=== PATIENT | male | born 1950 | race Caucasian/White ===

== ENCOUNTER 2024-08-23 19:03 | Inpatient (IN) | payer OTHER ==
[~2024-08-23] VITALS: Ht 185.4 cm; Wt 97.4 kg
[2024-08-23] VITALS (8 sets, daily range): BP systolic 112–153; BP diastolic 57–70
[~2024-08-23 19:03] MED LIST: Ketamine HCl 100 MG / ML 5ML Vial IV ONE; Rocuronium Bromide 10 MG/ML 5ML Injection IV ONE
[2024-08-23 19:37] LABS: BASOPHILS ABSOLUTE AUTO 0.05 K/mm3 (0.00-0.23); BASOPHILS PERCENT AUTO 0 % (0-2); EOSINOPHILS PERCENT AUTO 1 % (0-6); Hematocrit 44.8 % (37.0-53.0); Hemoglobin 14.2 g/dL (13.5-17.5); IMMATURE GRAN ABSOLUTE AUTO 0.28 K/mm3 (0.00-0.10); IMMATURE GRAN PERCENT AUTO 2 % (0-1); LYMPHOCYTES PERCENT AUTO 31 % (21-46); MONOCYTES ABSOLUTE AUTO 0.78 K/mm3 (0.16-1.47); MONOCYTES PERCENT AUTO 5 % (4-13); Mean Corpuscular HGB 29.9 pg (26.0-34.0); Mean Corpuscular HGB Conc 31.7 g/dL (31.5-36.5); Mean Corpuscular Volume 94 fL (80-100); Mean Platelet Volume 10.5 fL (9.1-12.4); NEUTROPHILS ABSOLUTE AUTO 9.22 K/mm3 (1.96-9.15); NEUTROPHILS PERCENT AUTO 61 % (41-73); Platelet Count 233 K/mm3 (150-400); RDW Coefficient Variation 12.8 % (11.7-14.2); RDW Standard Deviation 45.1 fL (35.1-46.3); Red Blood Cell Count 4.75 M/mm3 (4.30-5.90); White Blood Cell Count 15.13 K/mm3 (4.00-11.30)
[2024-08-23] MEDS ORDERED: FentaNYL Citrate 50 MCG/ML 2 ML Injection IV ONE (19:55)
[2024-08-23] MEDS ORDERED: propofoL 100 ML IV SCH (19:55)
[2024-08-23 19:56] LABS: Albumin, Blood 3.5 g/dL (3.4-5.0); Albumin/Globulin Ratio 1.2 (0.8-1.8); Bilirubin, Total 0.4 mg/dL (0.1-1.0); Bun/Creatinine Ratio 20.2 (12.0-20.0); Calcium, Blood 8.6 mg/dL (8.5-10.1); Creatinine, Blood 0.79 mg/dL (0.60-1.20); Globulin, Blood 2.8 g/dL (2.2-4.0); Potassium, Blood 3.8 mmol/L (3.5-5.5); Total Protein, Blood 6.3 g/dL (6.4-8.2)
[2024-08-23] MEDS ORDERED: Piperacillin/Tazobactam Sod 3.375 GM in NS 100 ML IV ONE (20:05)
[2024-08-23] MEDS ORDERED: NS 1,000 ML IV SCH (20:25)
[2024-08-23 20:33] LABS: Source, Urine Foley catheter
[2024-08-23] MEDS ORDERED: Ondansetron HCl 2 MG / ML 2ML Vial IV PRN (20:35)
[2024-08-23] MEDS ORDERED: FLU VACC TS2024-25(6MOS UP)/PF 45 MCG/0.5 ML SYRINGE IM SCH (20:35)
[2024-08-23 20:36] LABS: Appearance, Urine Hazy (Clear); Bilirubin, Urine Neg (Neg); Blood, Urine 4+ (Neg); Color, Urine Yellow (P-Yellow); Glucose Qualitative, Urine 2+ (Neg); Ketones, Urine Neg (Neg); Leukocyte Esterase, Urine Neg (Neg); Nitrite, Urine Neg (Neg); Protein, Urine 3+ (Neg); Specific Gravity, Urine 1.015 (1.003-1.022); Urobilinogen, Urine NORM (Normal)
[2024-08-23 20:50] LABS: Bacteria Many /hpf; Squamous Epithelial Cells Rare /hpf (Few)
[2024-08-23] MEDS ORDERED: Sodium Bicarb 8.4% 1 MEQ/ML 50 ML Vial IV ONE (21:00)
[2024-08-23] MEDS ORDERED: Enoxaparin 40 MG/0.4 ML SYR SC SCH (21:00)
[2024-08-23] MEDS ORDERED: Rocuronium Bromide 10 MG/ML 5ML Injection IV ONE (21:10)
[2024-08-23] MEDS ORDERED: Ketamine HCl 100 MG / ML 5ML Vial IV ONE (21:10)
[2024-08-23] MEDS ORDERED: Ipratropium/Albuterol SulF 2.5-0.5MG/3 ML Amp INH PRN (21:25)
[2024-08-23] MEDS ORDERED: Sodium Bicarb 8.4% Inj 100 MEQ in Sodium Chloride 0.45% 1,000 ML IV ONE (21:30)
[2024-08-23] MEDS ORDERED: Potassium Chl 20MEQ/Water100ML 100 ML IV SCH (21:30)
[2024-08-23] MEDS ORDERED: ALBU90OI INH (22:38)
[2024-08-23] MEDS ORDERED: Ventolin5 MG/1 ML INH (22:39)
[2024-08-23] MEDS ORDERED: Deltasone 10 mg10 MG PO (22:39)
[2024-08-23] MEDS ORDERED: VITAMIN B-1100 M1 PO (22:40)
[2024-08-23] MEDS ORDERED: TAMS.4ER PO (22:40)
[2024-08-23] MEDS ORDERED: ATOR20 PO (22:41)
[2024-08-23] MEDS ORDERED: LACT PO (22:42)
[2024-08-23] MEDS ORDERED: FURO40 PO (22:42)
[2024-08-23] MEDS ORDERED: Vitamin D1000 UNI1 PO (22:42)
[2024-08-23] MEDS ORDERED: PHOSPHO-TRIN K500 MG PO (22:44)
[2024-08-23] MEDS ORDERED: CENTRUM SILVER1 EAC2 PO (22:54)
[2024-08-23] MEDS ORDERED: Aspir 8181 MG PO (22:55)
--- NOTE | 2024-08-23 23:00 | NUR ---
PT ADMITTED TO ROOM ICU 13 FROM ED ARRIVING TO ROOM AT 2200. PT INTUBATED AND POST CODE. SLIDE TRANSFERRED TO BED FROM [facility]. PT ON INITIATED ON PROPOFOL AND HAS BEEN TITRATED UPWARDS TO 30 MCG'S/KG/MIN. PT REMAINS SOMEWHAT AGITATED. HAVE SUCTIONED WHITE/CREAM COLORED SECRETIONS. CALL MADE TO PT'S , BLAYNE WITH UPDATE. SHE STATES THAT SHE IS UNABLE TO COME IN AT THIS TIME SECONDARY TO THE FACT THAT SHE HAS A BROKEN ANKLE, AND THAT SHE WOULD COME UP IN IN THE MORNING WITH FAMILY. WILL REVIEW CHART AND PLAN OF CARE FOR THIS PT.
[2024-08-23 23:08] LABS: Base Excess Venous -8.6 mmol/L; Bicarbonate Venous 17.4 mmol/L (24.0-30.0); PCO2 Venous 51.9 mmHg (38-42); pH Blood Venous 7.19 (7.34-7.37)
[2024-08-23] MEDS ORDERED: Sodium Bicarb 8.4% 1 MEQ/ML 50 ML Vial ONE (23:25)
[2024-08-23] MEDS ORDERED: NS 250 ML IV PRN (23:40)
[2024-08-24] VITALS (41 sets, daily range): BP systolic 98–167; BP diastolic 56–130
[2024-08-24] MEDS ORDERED: Hydrogen Peroxide 1.5 % Solution MT SCH
[2024-08-24] MEDS ORDERED: MethylPREDNISolone Sod Succ 125 MG Vial IV SCH
[2024-08-24] MEDS ORDERED: Piperacillin/Tazobactam Sod 4.5 GM in NS 100 ML IV SCH (00:06)
--- NOTE | 2024-08-24 01:33 | NUR ---
CALL TO DR ELDER REGARDING ELEVATED BP AND AGITATION. OBTAINED ORDER FOR FENTANYL.
[2024-08-24] MEDS ORDERED: FentaNYL Citrate 50 MCG/ML 2 ML Injection IV PRN (01:35)
[2024-08-24 04:24] LABS: PCO2 Venous 47.6 mmHg (38-42); pH Blood Venous 7.41 (7.34-7.37)
[2024-08-24 04:25] LABS: Base Excess Venous 5.2 mmol/L; Bicarbonate Venous 28.1 mmol/L (24.0-30.0)
[2024-08-24 04:29] LABS: BASOPHILS ABSOLUTE AUTO 0.02 K/mm3 (0.00-0.23); BASOPHILS PERCENT AUTO 0 % (0-2); EOSINOPHILS PERCENT AUTO 0 % (0-6); Hematocrit 41.8 % (37.0-53.0); Hemoglobin 13.8 g/dL (13.5-17.5); IMMATURE GRAN ABSOLUTE AUTO 0.09 K/mm3 (0.00-0.10); IMMATURE GRAN PERCENT AUTO 1 % (0-1); LYMPHOCYTES ABSOLUTE AUTO 0.56 K/mm3 (0.84-5.20); LYMPHOCYTES PERCENT AUTO 3 % (21-46); MONOCYTES ABSOLUTE AUTO 0.46 K/mm3 (0.16-1.47); MONOCYTES PERCENT AUTO 3 % (4-13); Mean Corpuscular HGB 29.8 pg (26.0-34.0); Mean Corpuscular Volume 90 fL (80-100); Mean Platelet Volume 11.1 fL (9.1-12.4); NEUTROPHILS ABSOLUTE AUTO 15.24 K/mm3 (1.96-9.15); NEUTROPHILS PERCENT AUTO 93 % (41-73); Platelet Count 180 K/mm3 (150-400); RDW Coefficient Variation 13.1 % (11.7-14.2); RDW Standard Deviation 43.1 fL (35.1-46.3); Red Blood Cell Count 4.63 M/mm3 (4.30-5.90); White Blood Cell Count 16.37 K/mm3 (4.00-11.30)
[2024-08-24 04:51] LABS: Albumin, Blood 3.2 g/dL (3.4-5.0); Albumin/Globulin Ratio 1.2 (0.8-1.8); Bilirubin, Total 0.8 mg/dL (0.1-1.0); Bun/Creatinine Ratio 21.4 (12.0-20.0); Calcium, Blood 8.6 mg/dL (8.5-10.1); Creatinine, Blood 0.75 mg/dL (0.60-1.20); Globulin, Blood 2.6 g/dL (2.2-4.0); Total Protein, Blood 5.8 g/dL (6.4-8.2)
--- NOTE | 2024-08-24 05:25 | NUR ---
PT CONTINUES WITH SINUS FIDELINA AT THIS TIME. HAS BEEN MEDICATED TWICE WITH FENTANYL FOR VENT TOLERANCE AND FOR FRACTURED RIBS ON HIS RIGHT SIDE. PT HAS BEEN AGITATED AT TIMES. MAKES ATTEMPTS TO GET AHOLD OF HIS ETT. SOFT RESTRAINTS IN USE FOR PT'S PROTECTION FROM SELF-EXTUBATION. LABS HAVE BEEN DRAWN FROM POWERGLIDE IN RIGHT UPPER ARM. PT TOLERATES Q 2 HOUR TURNS FAIR. WILL CONTINUE TO MONITOR PT, AND WILL REPORT OFF TO ONCOMING RN.
[2024-08-24] MEDS ORDERED: Cetylpyridinium Chloride 1 EA MISC MT SCH ×2 (07:50→08:00)
[2024-08-24 09:59] LABS: Influenza A, PCR NEGATIVE (NEGATIVE); Influenza B, PCR NEGATIVE (NEGATIVE); Resp Syncytial Virus, PCR NEGATIVE (NEGATIVE); SARS-Cov-2 (COVID-19) PCR, MMC NEGATIVE (NEGATIVE)
[2024-08-24] MEDS ORDERED: OxyCODONE 5 mg/Acetamin 325 mg TABLET PO PRN (15:20)
[2024-08-24] MEDS ORDERED: Atorvastatin 10 MG Tab PO SCH (21:00)
[2024-08-25] VITALS (8 sets, daily range): BP systolic 146–170; BP diastolic 61–98
--- NOTE | 2024-08-25 05:42 | NUR ---
SHIFT SUMMARY PATIENT SLEPT MOST OF NIGHT. HAD SOME CHETS PAIN GAVE PRN MEDS X2, PATIENT WAS ABLE TO SLEEP AFTER MED WAS GIVEN. HAS NORMAL SALINE RUNNING AT 10MLS/HR TO KEEP LINE OPEN. BAI CATH DRAINING TO GRAVITY, URINE YELLOW IN COLOR. SBP 140-150'S, HR IN THE 60-70'S. PATIENT A&O X4. CALL LIGHT WITHIN REACH.
[2024-08-25] MEDS ORDERED: Pantoprazole Sodium 40 MG Injection IV SCH (06:00)
[2024-08-25 06:29] LABS: BASOPHILS ABSOLUTE AUTO 0.02 K/mm3 (0.00-0.23); BASOPHILS PERCENT AUTO 0 % (0-2); EOSINOPHILS ABSOLUTE AUTO 0.01 K/mm3 (0.00-0.68); EOSINOPHILS PERCENT AUTO 0 % (0-6); Hematocrit 45.5 % (37.0-53.0); Hemoglobin 14.8 g/dL (13.5-17.5); IMMATURE GRAN ABSOLUTE AUTO 0.12 K/mm3 (0.00-0.10); IMMATURE GRAN PERCENT AUTO 1 % (0-1); LYMPHOCYTES ABSOLUTE AUTO 1.01 K/mm3 (0.84-5.20); LYMPHOCYTES PERCENT AUTO 6 % (21-46); MONOCYTES ABSOLUTE AUTO 0.78 K/mm3 (0.16-1.47); MONOCYTES PERCENT AUTO 5 % (4-13); Mean Corpuscular HGB 30.3 pg (26.0-34.0); Mean Corpuscular HGB Conc 32.5 g/dL (31.5-36.5); Mean Corpuscular Volume 93 fL (80-100); Mean Platelet Volume 11.6 fL (9.1-12.4); NEUTROPHILS ABSOLUTE AUTO 15.41 K/mm3 (1.96-9.15); NEUTROPHILS PERCENT AUTO 89 % (41-73); Platelet Count 192 K/mm3 (150-400); RDW Coefficient Variation 13.1 % (11.7-14.2); RDW Standard Deviation 44.9 fL (35.1-46.3); Red Blood Cell Count 4.88 M/mm3 (4.30-5.90); White Blood Cell Count 17.35 K/mm3 (4.00-11.30)
[2024-08-25 07:00] LABS: Albumin, Blood 3.3 g/dL (3.4-5.0); Albumin/Globulin Ratio 1.1 (0.8-1.8); Bilirubin, Total 0.7 mg/dL (0.1-1.0); Bun/Creatinine Ratio 28.8 (12.0-20.0); Calcium, Blood 8.7 mg/dL (8.5-10.1); Creatinine, Blood 0.73 mg/dL (0.60-1.20); Globulin, Blood 3.1 g/dL (2.2-4.0); Potassium, Blood 4.1 mmol/L (3.5-5.5); Total Protein, Blood 6.4 g/dL (6.4-8.2)
[2024-08-25] MEDS ORDERED: Acetaminophen 325 MG TABLET PO PRN (07:40)
[2024-08-25] MEDS ORDERED: TraMADol HCl 50 MG Tab PO PRN (07:40)
[2024-08-25] MEDS ORDERED: Tamsulosin HCl 0.4 MG Cap PO SCH (09:00)
[2024-08-25] MEDS ORDERED: Lactobacil 2-S.Thermo-Bifido 1 1 Cap PO SCH (09:00)
[2024-08-25] MEDS ORDERED: Multivitamins/Minerals 1 Tab PO SCH (09:00)
[2024-08-25] MEDS ORDERED: Aspirin 81 MG TabEC PO SCH (09:00)
[2024-08-25] MEDS ORDERED: MethylPREDNISolone Sod Succ 125 MG Vial IV SCH (09:00)
[2024-08-25] MEDS ORDERED: Amoxicillin/Clavulanate K 875 MG Tab PO SCH (09:00)
[2024-08-25] MEDS ORDERED: Cholecalciferol 1000 Unit Tablet (=25MCG) PO SCH (09:00)
[2024-08-25] MEDS ORDERED: Lisinopril 20 MG Tab PO SCH (10:00)
[2024-08-25] MEDS ORDERED: Lidocaine 4% 1 Patch TOP PRN (13:15)
--- NOTE | 2024-08-25 17:54 | NUR ---
SHIFT SUMMARY PT AND BOBBIN CLEANER CONSULTED. PATIENT REQUESTING HELP AT HOME. UP TO CHAIR TODAY WITH WALKER, TOLLERATED FAIRLY. LIDOCAIN PATCHES ADDED FOR PAIN MANAGEMENT. NO ACUTE CHANGES DURING SHIFT.
[2024-08-26] VITALS (7 sets, daily range): BP systolic 113–181; BP diastolic 65–89
--- NOTE | 2024-08-26 05:17 | NUR ---
SHIFT SUMMARY PATIENT SLEPT MOST OF NIGHT. LUNGS CLEAR UPPER LOBES SLIGHTLY DIMINISHED IN LOWER LOBES. O2 SAT @97 WITH 3L VIA NC. SBP IN THE 140-150'S MAP 95. HR 70'S. HAS MALE PUREWICK ON THAT IS CONNECTED TO SUCTION. HAS PAIN IN RIB AREA HAVE BEEN GIVING PRN PAIN MEDS PER EMAR. CALL LIGHT WITHIN REACH.
[2024-08-26 05:29] LABS: BASOPHILS ABSOLUTE AUTO 0.02 K/mm3 (0.00-0.23); BASOPHILS PERCENT AUTO 0 % (0-2); EOSINOPHILS ABSOLUTE AUTO 0.04 K/mm3 (0.00-0.68); EOSINOPHILS PERCENT AUTO 0 % (0-6); Hemoglobin 14.3 g/dL (13.5-17.5); IMMATURE GRAN ABSOLUTE AUTO 0.12 K/mm3 (0.00-0.10); IMMATURE GRAN PERCENT AUTO 1 % (0-1); LYMPHOCYTES ABSOLUTE AUTO 1.24 K/mm3 (0.84-5.20); LYMPHOCYTES PERCENT AUTO 7 % (21-46); MONOCYTES ABSOLUTE AUTO 1.07 K/mm3 (0.16-1.47); MONOCYTES PERCENT AUTO 6 % (4-13); Mean Corpuscular HGB 30.2 pg (26.0-34.0); Mean Corpuscular HGB Conc 31.8 g/dL (31.5-36.5); Mean Corpuscular Volume 95 fL (80-100); Mean Platelet Volume 10.8 fL (9.1-12.4); NEUTROPHILS ABSOLUTE AUTO 14.49 K/mm3 (1.96-9.15); NEUTROPHILS PERCENT AUTO 85 % (41-73); Platelet Count 164 K/mm3 (150-400); RDW Coefficient Variation 12.9 % (11.7-14.2); RDW Standard Deviation 44.9 fL (35.1-46.3); Red Blood Cell Count 4.74 M/mm3 (4.30-5.90); White Blood Cell Count 16.98 K/mm3 (4.00-11.30)
[2024-08-26 05:52] LABS: Bilirubin, Total 0.4 mg/dL (0.1-1.0); Bun/Creatinine Ratio 44.3 (12.0-20.0); Calcium, Blood 8.4 mg/dL (8.5-10.1); Creatinine, Blood 0.63 mg/dL (0.60-1.20); Potassium, Blood 4.5 mmol/L (3.5-5.5)
[2024-08-26] MEDS ORDERED: Lisinopril 20 MG Tab PO SCH (09:00)
[2024-08-26] MEDS ORDERED: OxyCODONE 10/Acetamin 325 TABLET PO STA (10:05)
[2024-08-26] MEDS ORDERED: OxyCODONE 10/Acetamin 325 TABLET PO PRN (11:00)
--- NOTE | 2024-08-26 18:19 | NUR ---
Pt transferred to medical floor room 333. Report given to medical floor RN. VS stable, no acute events this shift. All personal belongings sent with patient to new room. Pt transferred via wheelchair.
--- NOTE | 2024-08-26 19:21 | NUR ---
END OF SHIFT SUMMARY: A&Ox4. PLEASANT AND COOPERATIVE WITH CARE, THOUGH CAN BE NEUROTIC AND DEMANDING. CALLS APPROPRIATELY AND IS ABLE TO ADVOCATE NEEDS EFFECTIVELY. SBA c FWW FOR AMBULATION. CONTINENT OF BOWEL AND BLADDER. LBM TODAY. MEDS WHOLE WITH FLUIDS. TELE IN PLACE. NO C/O PAIN OR DISCOMFORT SINCE ARRIVAL TO MEDICAL FLOOR AROUND 1800. BED IN LOWEST POSITION. CALL LIGHT WITHIN REACH. ALL NEEDS MET. REPORT TO ONCOMING NURSE.
--- NOTE | 2024-08-27 04:10 | NUR ---
SHIFT SUMMARY 73 YR M ADMITTED 08/23/24 FOR CARDIAC ARREST. FULL CODE. NO ACUTE CHANGES THIS SHIFT. PT C/O PAIN IN HIS RIBS A RESULT OF CPR AND HAS BEEN MEDICATED TWICE SO FAR PER EMAR. HE APPEARS TO HAVE SLEPT OFF AND ON THROUGHOUT THIS SHIFT. HE YELLED OUT FOR HIS PAIN MEDS THE FIRST TIME BUT CALLED APPROPRIATELY THE SECOND TIME. OTHERWISE HE IS PLEASANT AND COOPERATIVE WITH CARE. BED IN LOW POSITION AND CALLLIGHT IN REACH.
[2024-08-27 04:26] VITALS: BP 196/90
[2024-08-27] MEDS ORDERED: HydrALAZINE HCl 20 MG / ML 1ML Vial IV PRN (07:20)
[2024-08-27 07:28] LABS: Albumin, Blood 3.4 g/dL (3.4-5.0); Albumin/Globulin Ratio 1.1 (0.8-1.8); Bilirubin, Total 0.7 mg/dL (0.1-1.0); Bun/Creatinine Ratio 37.5 (12.0-20.0); Calcium, Blood 8.8 mg/dL (8.5-10.1); Creatinine, Blood 0.67 mg/dL (0.60-1.20); Globulin, Blood 3.1 g/dL (2.2-4.0); Potassium, Blood 4.3 mmol/L (3.5-5.5); Total Protein, Blood 6.5 g/dL (6.4-8.2)
[2024-08-27 07:29] VITALS: BP 182/97
[2024-08-27 07:40] LABS: BASOPHILS ABSOLUTE AUTO 0.01 K/mm3 (0.00-0.23); BASOPHILS PERCENT AUTO 0 % (0-2); EOSINOPHILS ABSOLUTE AUTO 0.05 K/mm3 (0.00-0.68); EOSINOPHILS PERCENT AUTO 0 % (0-6); Hematocrit 46.5 % (37.0-53.0); Hemoglobin 14.8 g/dL (13.5-17.5); IMMATURE GRAN ABSOLUTE AUTO 0.14 K/mm3 (0.00-0.10); IMMATURE GRAN PERCENT AUTO 1 % (0-1); LYMPHOCYTES ABSOLUTE AUTO 1.23 K/mm3 (0.84-5.20); LYMPHOCYTES PERCENT AUTO 8 % (21-46); MONOCYTES ABSOLUTE AUTO 1.33 K/mm3 (0.16-1.47); MONOCYTES PERCENT AUTO 8 % (4-13); Mean Corpuscular HGB Conc 31.8 g/dL (31.5-36.5); Mean Corpuscular Volume 94 fL (80-100); Mean Platelet Volume 11.6 fL (9.1-12.4); NEUTROPHILS ABSOLUTE AUTO 13.66 K/mm3 (1.96-9.15); NEUTROPHILS PERCENT AUTO 83 % (41-73); Platelet Count 200 K/mm3 (150-400); RDW Coefficient Variation 12.7 % (11.7-14.2); RDW Standard Deviation 43.8 fL (35.1-46.3); Red Blood Cell Count 4.93 M/mm3 (4.30-5.90); White Blood Cell Count 16.42 K/mm3 (4.00-11.30)
[2024-08-27 14:40] VITALS: BP 187/73
--- NOTE | 2024-08-27 18:46 | NUR ---
END OF SHIFT SUMMARY: A&Ox4. PLEASANT AND COOPERATIVE WITH CARE. CALLS APPROPRIATELY AND IS ABLE TO ADVOCATE NEEDS EFFECTIVELY. AMBULATES OCCASIONALLY WITH SBA AND FWW. CONTINENT OF BOWEL AND BALDDER; USES BEDSIDE URINAL AND CALLS TO HAVE IT EMPTIED. MEDS WHOLE WITH FLUIDS. TELE SINSU <--> AFIB. MEDICATED PAIN x2 WITH GOOD RELIEF. ENCOURAGED TO TURN/COUGH/DEEP BREATHING AND INCENTIVE SPIROMETER EVERY TIME A COMMERCIAL COMES ON HIS TV. PLAN FOR DC TO SNF. BED IN LOWEST POSITION. CALL LIGHT WITHIN REACH. ALL NEEDS MET. REPORT TO ONCOMING NURSE.
[2024-08-27 19:40] VITALS: BP 177/90
[2024-08-28 03:12] VITALS: BP 178/91
[2024-08-28 06:22] LABS: BASOPHILS ABSOLUTE AUTO 0.01 K/mm3 (0.00-0.23); BASOPHILS PERCENT AUTO 0 % (0-2); EOSINOPHILS ABSOLUTE AUTO 0.01 K/mm3 (0.00-0.68); EOSINOPHILS PERCENT AUTO 0 % (0-6); Hematocrit 43.9 % (37.0-53.0); Hemoglobin 14.4 g/dL (13.5-17.5); IMMATURE GRAN PERCENT AUTO 1 % (0-1); LYMPHOCYTES ABSOLUTE AUTO 0.95 K/mm3 (0.84-5.20); LYMPHOCYTES PERCENT AUTO 8 % (21-46); MONOCYTES ABSOLUTE AUTO 1.12 K/mm3 (0.16-1.47); MONOCYTES PERCENT AUTO 9 % (4-13); Mean Corpuscular HGB 30.4 pg (26.0-34.0); Mean Corpuscular HGB Conc 32.8 g/dL (31.5-36.5); Mean Corpuscular Volume 93 fL (80-100); Mean Platelet Volume 11.1 fL (9.1-12.4); NEUTROPHILS ABSOLUTE AUTO 9.86 K/mm3 (1.96-9.15); NEUTROPHILS PERCENT AUTO 82 % (41-73); Platelet Count 190 K/mm3 (150-400); RDW Coefficient Variation 12.5 % (11.7-14.2); RDW Standard Deviation 42.6 fL (35.1-46.3); Red Blood Cell Count 4.73 M/mm3 (4.30-5.90); White Blood Cell Count 12.05 K/mm3 (4.00-11.30)
--- NOTE | 2024-08-28 06:28 | NUR ---
SHIFT SUMMARY PT A&OX4 AND ANSWERS QUESTIONS APPROPRIATELY. PT RECEIVED SCHEDULED AND PRN MEDICATIONS WITH NO ADVERSE EFFECTS. PT EXPERIENCES HTN AND WAS TREATED WITH HYDRALAZINE. REMAINING VSS, NO COMPLAINTS OF CP/PRESSURE OR SOB. PT POWERGLIDE ABLE TO DRAW BUT IS EXTREMELY POSITIONAL. NO ACUTE EVENTS AT THIS TIME. PT REPOSITIONED INDEPENDENTLY. PT LEFT IN A POSITION OF SAFETY WITH FALL PRECAUTIONS IN PLACE AND CALL LIGHT IN REACH.
[2024-08-28 06:36] LABS: Bun/Creatinine Ratio 46.8 (12.0-20.0); Calcium, Blood 9.1 mg/dL (8.5-10.1); Creatinine, Blood 0.56 mg/dL (0.60-1.20); Potassium, Blood 4.6 mmol/L (3.5-5.5)
[2024-08-28 07:01] VITALS: BP 190/76
[2024-08-28] MEDS ORDERED: AmLODIPine Besylate 5 MG Tab PO SCH (10:11)
[2024-08-28 10:46] VITALS: BP 188/86
[2024-08-28] MEDS ORDERED: PredniSONE 20 MG Tab PO SCH ×2 (12:00→21:00)
[2024-08-28 13:57] VITALS: BP 172/59
[2024-08-28] MEDS ORDERED: AMLO5 PO (14:14)
[2024-08-28] MEDS ORDERED: AMOCLA875 PO (14:15)
[2024-08-28] MEDS ORDERED: LISI20 PO (14:15)
[2024-08-28] MEDS ORDERED: PRED20 PO (14:16)
[2024-08-28] MEDS ORDERED: Percocet 10-321 EACH PO (14:19)
[2024-08-28 14:44] VITALS: BP 166/58
--- NOTE | 2024-08-28 15:03 | NUR ---
DISCHARGE NOTE- PT DISCHARGED TO [facility]. HE WILL BE TAKEN VIA WC TRANSPORT WITH HIS O2 AT 4L VIA NC. IV'S DC'D. PER FACILITY REQUEST THE PG WAS LEFT IN PLACE IN THE [place]. PT ALERT AND ORIENTED. ATTEMPTED TO CALL REPORT TO RN AT [facility], SHE WAS UNAVAILABLE AT THIS TIME. PROVIDED CALL BACK NUMBER. AWAITING CALL BACK TO GIVE REPORT.
--- NOTE | 2024-08-28 16:34 | NUR ---
RECIEVED CALL BACK FROM [facility]. GAVE FULL REPORT TO THE [facility]. NO FURTHER QUESTIONS AT THIS TIME THEY HAVE CONTACT INFO IF A QUESTION SHOULD ARRISE.
== END 2024-08-28 15:38 | DRG 208 ==
LOC: ER 19:03 → MEDS 20:30 → EDBD 20:30 → ICUE 20:30 → MEDS 08-26 18:10
PROVIDERS: Emergency Medicine; Student in an Organized Health Care Education/Training Program; ADMIT Internal Medicine
PROC: 5A1935Z Respiratory Ventilation, Less than 24 Consecutive Hours (ICD-10-PCS; principal; 2024-08-23)
DX: J96.01 Acute respiratory failure with hypoxia (principal); I46.8 Cardiac arrest due to other underlying condition; I21.A1 Myocardial infarction type 2; M96.A3 Multiple fractures of ribs associated with chest compression and cardiopulmonary resuscitation; J44.1 Chronic obstructive pulmonary disease with (acute) exacerbation; Z79.82 Long term (current) use of aspirin; Z79.899 Other long term (current) drug therapy; F17.200 Nicotine dependence, unspecified, uncomplicated; E78.5 Hyperlipidemia, unspecified; N40.0 Benign prostatic hyperplasia without lower urinary tract symptoms
CPT/HCPCS: 0241U; 31500; 36415; 51702; 70450; 71045; 71260; 80048; 80053; 81001; 82803; 82947; 83605; 83735; 83880; 84484; 85025; 85379; 87040; 87070; 87086; 87205; 93005; 93010; 93306; 94002; 94003; 94640; 94664; 94760; 94762; 96374-59; 97110; 97162; 99285-25; A9270; C1751; J0360; J1650; J2470; J2543; J2704; J2919; J3010; J3480; J7030; J7050; J7512; Q9967